=== PATIENT | female | born 1985 | race African-American/Black ===

== ENCOUNTER 2017-03-04 02:54 | Emergency (ER) | payer OTHER ==
[~2017-03-04] VITALS: Ht 167.6 cm; Wt 65.0 kg
[~2017-03-04 02:54] MED LIST: BIRTH CONTROL
[2017-03-04] MEDS ORDERED: METOCLOPRAMIDE HCL 5MG TABLET PO ONE (04:15)
[2017-03-04] MEDS ORDERED: KETOROLAC 60MG/2ML VIAL IM ONE (04:15)
[2017-03-04 04:26] LABS: HEMATOCRIT. 39.3 % (36.0-48.0); HEMOGLOBIN. 13.3 g/dL (12.0-16.0); MEAN CORPUSCULAR HGB CONC 33.8 g/dL (31.0-37.0); MEAN CORPUSCULAR VOLUME 85.8 fL (81.0-99.0); PLATELET 219 x1000/uL (130-400); RED BLOOD CELL COUNT 4.58 mill/uL (4.2-5.4); RED CELL DISTRIBUTION WIDTH 13.9 % (11.6-14.6); WHITE BLOOD COUNT 5.2 x1000/uL (4.5-11.0)
[2017-03-04 04:31] LABS: CLARITY URINE CLEAR (CLEAR); COLOR URINE DARK YELLOW (YELLOW); GLUCOSE URINE NEGATIVE (NEGATIVE); KETONES URINE NEGATIVE (NEGATIVE); LEUKOCYTE ESTERASE URINE NEGATIVE (NEGATIVE); NITRITE URINE NEGATIVE (NEGATIVE); OCCULT BLOOD URINE NEGATIVE (NEGATIVE); PROTEIN URINE NEGATIVE (NEGATIVE); SPECIFIC GRAVITY URINE 1.041 (1.005-1.030)
[2017-03-04 04:32] LABS: NEUTROPHILS % 39.9 % (40.0-76.0)
[2017-03-04 04:33] LABS: EOSINOPHILS % 3.7 % (0.0-5.0); LYMPHOCYTES % 44.6 % (20.0-50.0); MONOCYTES % 10.8 % (2.0-8.0); PROTHROMBIN TIME 10.2 sec
[2017-03-04 04:34] LABS: PLATELET ESTIMATE NORMAL
[2017-03-04 04:41] LABS: ALANINE AMINOTRANSFERASE 241 IU/L (13-61); ALBUMIN 3.8 g/dL (3.4-5.0); ANION GAP 9; CALCIUM 8.7 mg/dL (8.5-10.1); CARBON DIOXIDE 28 mEq/L (21-32); CHLORIDE 106 mEq/L (98-107); INDEX HEMOLYSI 1 (1-3); INDEX ICTERIC 1 (1-4); INDEX LIPEMIC 1 (1-3); LIPASE 124 IU/L (73-393); UREA NITROGEN BLOOD 11 mg/dL (7-21); eGFR > 60 mL/min (>60)
[2017-03-04] MEDS ORDERED: SODIUM CHLORIDE 0.9% 1,000 ML IV ONE (04:46)
[2017-03-04 04:52] LABS: *AMPHETAMINES SCREEN URINE NEGATIVE (NEGATIVE); *BARBITURATES SCREEN URINE NEGATIVE (NEGATIVE); *BENZODIAZEPINES SCREEN URINE NEGATIVE (NEGATIVE); *COCAINE SCREEN URINE NEGATIVE (NEGATIVE); CANNABINOID URINE SCREEN NEGATIVE (NEGATIVE); ECSTASY MDMA SCREEN URINE NEGATIVE (NEGATIVE); METHADONE URINE SCREEN NEGATIVE (NEGATIVE); PHENCYCLIDINE URINE SCREEN NEGATIVE (NEGATIVE)
[2017-03-04 05:06] LABS: OPIATES URINE SCREEN PRESUMTIVE POSITIVE (NEGATIVE)
[2017-03-04 06:45] VITALS: BP 114/59
== END 2017-03-04 06:50 | disposition home or self-care (01) ==
LOC: ER 02:59
DX: R51 Headache (principal); J45.909 Unspecified asthma, uncomplicated; F17.200 Nicotine dependence, unspecified, uncomplicated; Z90.49 Acquired absence of other specified parts of digestive tract; Z87.440 Personal history of urinary (tract) infections
CPT/HCPCS: 36415; 76705; 80053; 80305; 81003; 81025; 83690; 85025; 85610; 96360; 96372; 99285; J1885; J7030; Z7610; J8597

== ENCOUNTER 2017-09-16 10:30 | Emergency (ER) | payer OTHER ==
[~2017-09-16] VITALS: Ht 167.6 cm; Wt 73.0 kg
[2017-09-16 10:31] VITALS: BP 139/68
== END 2017-09-16 14:16 | disposition left against medical advice (07) ==
LOC: ER 10:30
DX: R42 Dizziness and giddiness (principal); Z53.21 Procedure and treatment not carried out due to patient leaving prior to being seen by health care provider

== ENCOUNTER 2019-07-21 10:37 | Emergency (ER) | payer OTHER ==
[~2019-07-21] VITALS: Ht 167.6 cm; Wt 68.0 kg
[2019-07-21] MEDS ORDERED: ACETAMINOPHEN 325MG TABLET PO ONE (11:45)
[2019-07-21] MEDS ORDERED: HYDROCODONE/ACETAMINOPHEN 5/325MG TABLET PO ONE (12:15)
[2019-07-21 14:41] VITALS: BP 131/74
== END 2019-07-21 14:35 | disposition home or self-care (01) ==
LOC: ER 10:37
DX: S09.8XXA Other specified injuries of head, initial encounter (principal); S30.0XXA Contusion of lower back and pelvis, initial encounter; S70.11XA Contusion of right thigh, initial encounter; R03.0 Elevated blood-pressure reading, without diagnosis of hypertension; Y04.2XXA Assault by strike against or bumped into by another person, initial encounter; Y93.89 Activity, other specified; Y92.521 Bus station as the place of occurrence of the external cause
CPT/HCPCS: 81025; 99284

== ENCOUNTER 2019-10-30 00:47 | Emergency (ER) | payer OTHER ==
[~2019-10-30] VITALS: Ht 162.6 cm; Wt 73.0 kg
[2019-10-30 01:00] VITALS: BP 140/84
== END 2019-10-30 01:41 | disposition left against medical advice (07) ==
LOC: ER 01:08
DX: R51 Headache (principal); Z90.49 Acquired absence of other specified parts of digestive tract
CPT/HCPCS: 99283; Z7610